=== PATIENT | female | born 1955 | race Two or more races ===

== ENCOUNTER 2021-07-07 20:37 | Emergency (ER) | payer MEDICARE, MEDICAID ==
[~2021-07-07] VITALS: Ht 152.4 cm; Wt 64.4 kg
[~2021-07-07 20:37] MED LIST: HYDRPOW88 XX; NORVASC; SIMVPOW2 XX
[2021-07-07 23:04] LABS: Basophils # (auto) 0.1 10 ^3/uL (0-0.2); Basophils % (auto) 1.2 % (0.0-2.0); Eosinophils # (auto) 0.4 10 ^3/uL (0-0.8); Eosinophils % (auto) 5.2 % (0.0-7.0); Hematocrit 48.1 % (36.0-46.0); Hemoglobin 16.1 g/dL (12.2-16.2); Lymphocytes # (auto) 2.1 10 ^3/uL (0.4-5.4); Lymphocytes % (auto) 31.4 % (10.0-50.0); Mean Corpuscular Hemoglobin 28.9 pg (28.0-32.0); Mean Corpuscular Hgb Conc. 33.5 g/dL (32.0-36.0); Mean Corpuscular Volume 86.1 fL (80.0-100.0); Monocytes # (auto) 0.4 10 ^3/uL (0-1.3); Monocytes % (auto) 5.8 % (0.0-12.0); Neutrophils # (auto) 3.8 10 ^3/uL (1.6-8.6); Neutrophils % (auto) 56.4 % (37.0-80.0); Red Blood Cells 5.58 10^6/uL (4.0-5.20); Red Cell Distribution Width 13.7 % (11.8-14.3); White Blood Cell 6.8 10^3/uL (4.4-10.8)
[2021-07-07 23:25] LABS: Albumin 3.6 g/dL (3.4-5.0); Calcium 8.6 mg/dL (8.5-10.1); Potassium 3.6 mmol/L (3.5-5.1)
[2021-07-07 23:28] LABS: BUN/Creatinine Ratio 29.6
[2021-07-07 23:40] LABS: Bilirubin, Total 0.2 mg/dL (0.2-1.0); Total Protein 7.1 g/dL (6.4-8.2)
[2021-07-08 02:00] VITALS: BP 148/74
[2021-07-08 03:17] LABS: Urine Bacteria FEW /hpf (None Seen); Urine Blood 1+ /uL (Negative); Urine Mucus FEW (None Seen); Urine Specific Gravity 1.029 (1.001-1.035); Urine WBC 13 /hpf (0 - 5)
[2021-07-08] MEDS ORDERED: CEFD300C2 PO (03:28)
== END 2021-07-08 04:58 | disposition home or self-care (01) ==
LOC: ER 20:38
DX: N39.0 Urinary tract infection, site not specified (principal); R51.9 Headache, unspecified; I10 Essential (primary) hypertension; E78.5 Hyperlipidemia, unspecified; F17.210 Nicotine dependence, cigarettes, uncomplicated; Z86.73 Personal history of transient ischemic attack (TIA), and cerebral infarction without residual deficits
CPT/HCPCS: 36415; 70450; 71045; 80053; 81001; 82962; 84484; 85025; 93005